=== PATIENT | female | born 1935 | race American Indian/Alaskan Native ===

== ENCOUNTER 2017-03-01 17:23 | Emergency (ER) | payer MEDICARE, MEDICAID ==
[2017-03-01 17:32] VITALS: BP 152/76; PULSE 78; RESP 18; TEMP 97.8; O2SAT 99
--- NOTE | 2017-03-01 17:55 | ED PDOC ---
HPI: General Adult Time Seen by Provider: 03/01/17 17:40 Chief Complaint (Nursing): Anxiety Chief Complaint (Provider): Anxious History Per: Family History/Exam Limitations: no limitations Onset/Duration Of Symptoms: Days, Persistent Have you had recent travel within the past 21 days to any of the following countries: [place], [place], [place] or [place]?: No Current Symptoms Are (Timing): Still Present Additional History Per: Family Additional Complaint(s): The pt is a 81yo female, PMHx of HTN, brought to the ED for evaluation of persistent anxiety. Per pt's daughter, the pt was scheduled for an MRI for chronic back pain and was not able to conduct it due to anxiety from being inside the machine. Daughter additionally reports the pt is unable to stay in a closed room and has an anxious affect persistently. Denies any chest pain, shortness of breath, fever, chills. Pt denies any other medical complaints. Past Medical History Reviewed: Historical Data, Nursing Documentation, Vital Signs Vital Signs: Last Vital Signs Temp 97.8 F 03/01/17 17:27 Pulse 78 03/01/17 17:27 Resp 18 03/01/17 17:27 BP 152/76 H 03/01/17 17:27 Pulse Ox 99 03/01/17 20:59 - Medical History PMH: HTN - Surgical History Surgical History: No Surg Hx - Family History Family History: States: Unknown Family Hx - Living Arrangements Living Arrangements: With Family - Allergies Allergies/Adverse Reactions: Allergies Allergy/AdvReac Type Severity Reaction Status Date / Time No Known Allergies Allergy Verified 03/01/17 17:26 Review of Systems ROS Statement: Except As Marked, All Systems Reviewed And Found Negative Constitutional: Negative for: Fever, Chills Cardiovascular: Negative for: Chest Pain Respiratory: Negative for: Shortness of Breath Psych: Positive for: Anxiety Physical Exam - Reviewed Nursing Documentation Reviewed: Yes Vital Signs Reviewed: Yes - Physical Exam Appears: Positive for: Well, Non-toxic, No Acute Distress Head Exam: Positive for: ATRAUMATIC, NORMAL INSPECTION, NORMOCEPHALIC Skin: Positive for: Normal Color, Warm, DRY Eye Exam: Positive for: Normal appearance Neck: Positive for: Normal Cardiovascular/Chest: Positive for: Regular Rate, Rhythm Respiratory: Positive for: Normal Breath Sounds. Negative for: Respiratory Distress Neurologic/Psych: Positive for: Alert, Oriented, Mood/Affect (anxious) - Laboratory Results Result Diagrams: 03/01/17 21:07 03/01/17 21:06 - ECG O2 Sat by Pulse Oximetry: 99 (RA) Pulse Ox Interpretation: Normal - Progress ED Course And Treament: xanax 0.25 mg x 1 dose with improvement of symptoms. d/w Crisis. Seen by them. cleared for d/c by Dr. Espitia. diagnosis Anxiety. Appointment made for outpatient March 10 for mental health services. Family to f/u with cardiology as well. Medical Decision Making Medical Decision Making: Time: 1747 Impression: Anxiety Plan: -- CT head -- Bloodwork -- CXR -- Urinalysis -- Crisis evaluation -- Reassess Time: 1934 CT HEAD FINDINGS: Brain: There is mild prominence of sulci, gyri and ventricles. There is no midline shift. There is decreased attenuation in periventricular white matter. There are age indeterminate bilateral basal ganglia lacunar infarcts. There basal ganglia calcifications left greater than right. There are no focal masses. There are no focal hemorrhages. Tirado-white differentiation is visualized. Ventricles: See above Bones: Cranial vault is intact. Soft tissues: unremarkable Sinuses: There is no acute sinusitis. Ears and mastoids: Middle ears and mastoids are unremarkable. Orbits: Orbital contents are unremarkable. IMPRESSION: Mild atrophy and small vessel disease no bleed; age indeterminate basal ganglia lacunar infarcts Time: 2052 CXR FINDINGS: Heart and mediastinum: The heart is mildly enlarged. There are calcifications in the aortic wall. Aorta is mildly uncoiled. Hilar contours are unremarkable. Vascularity:Pulmonary vascularity is normal. Lungs: Lungs are clear. Pleural spaces: There no effusions. Bony structures: Bony structures are osteopenic. IMPRESSION: Mild cardiomegaly and atherosclerotic disease no focal pneumonia Scribe Attestation: Documented by Sophie Gan acting as a scribe for DARRON Morales Provider Attestation: All medical record entries made by the Scribe were at my direction and personally dictated by me. I have reviewed the chart and agree that the record accurately reflects my personal performance of the history, physical exam, medical decision making, and the department course for this patient. I have also personally directed, reviewed, and agree with the discharge instructions and disposition. Disposition - Clinical Impression Clinical Impression: Anxiety - Patient ED Disposition Is Patient to be Admitted: No - Disposition Disposition: Routine/Home Disposition Time: 22:05 Condition: FAIR Instructions: Generalized Anxiety Disorder (ED)
[2017-03-01 19:11] LABS: SQUAMOUS EPITHIAL < 1 /hpf (0-5); URINE BILIRUBIN NEGATIVE (NEGATIVE); URINE BLOOD NEGATIVE (NEGATIVE); URINE CLARITY CLEAR (Clear); URINE COLOR STRAW (YELLOW); URINE GLUCOSE (UA) NEG (Normal); URINE LEUKOCYTE ESTERASE NEG Leu/uL (Negative); URINE NITRATE NEGATIVE (NEGATIVE); URINE PROTEIN NEGATIVE (NEGATIVE); URINE UROBILINOGEN 0.2-1.0 mg/dL (0.2-1.0)
[2017-03-01 19:22] LABS: BARBITURATES, UR NEGATIVE (NEGATIVE); BENZODIAZEPINES, UR NEGATIVE (NEGATIVE); OPIATES, UR NEGATIVE (NEGATIVE); PHENCYCLIDINE, UR NEGATIVE (NEGATIVE)
--- NOTE | 2017-03-01 19:33 | CT ---
EXAM: CT Head Without Intravenous Contrast CLINICAL HISTORY: 81 years old, female; Signs and symptoms; Altered mental status/memory loss; Other: Anxiety; Patient HX: Pat arrived to ed for evaluation of persisten anxiety, pat denies other medical complaints; Additional info: Change in mental status TECHNIQUE: Axial computed tomography images of the head/brain without intravenous contrast. This CT exam was performed using one or more of the following dose reduction techniques: automated exposure control, adjustment of the mA and/or kV according to patient size, and/or use of iterative reconstruction technique. Coronal and sagittal reformatted images were created and reviewed. EXAM DATE/TIME: 03/01/2017 5:52 PM COMPARISON: There are no prior studies for comparison. FINDINGS: Brain: There is mild prominence of sulci, gyri and ventricles. There is no midline shift. There is decreased attenuation in periventricular white matter. There are age indeterminate bilateral basal ganglia lacunar infarcts. There basal ganglia calcifications left greater than right. There are no focal masses. There are no focal hemorrhages. Tirado-white differentiation is visualized. Ventricles: See above Bones: Cranial vault is intact. Soft tissues: unremarkable Sinuses: There is no acute sinusitis. Ears and mastoids: Middle ears and mastoids are unremarkable. Orbits: Orbital contents are unremarkable. IMPRESSION: Mild atrophy and small vessel disease no bleed; age indeterminate basal ganglia lacunar infarcts
--- NOTE | 2017-03-01 20:53 | RAD ---
EXAM: XR Chest, 2 Views CLINICAL HISTORY: 81 years old, female; Signs and symptoms; Shortness of breath; Additional info: SOB TECHNIQUE: Frontal and lateral views of the chest. EXAM DATE/TIME: 03/01/2017 5:53 PM COMPARISON: There are no prior studies for comparison. FINDINGS: Heart and mediastinum: The heart is mildly enlarged. There are calcifications in the aortic wall. Aorta is mildly uncoiled. Hilar contours are unremarkable. Vascularity:Pulmonary vascularity is normal. Lungs: Lungs are clear. Pleural spaces: There no effusions. Bony structures: Bony structures are osteopenic. IMPRESSION: Mild cardiomegaly and atherosclerotic disease no focal pneumonia
[2017-03-01 21:10] LABS: BASO # 0.1 K/uL (0.0-0.2); BASO % 0.9 % (0.0-2.0); EOS # 0.1 K/uL (0.0-0.7); EOS % 2.1 % (0.0-4.0); HEMOGLOBIN 13.5 g/dL (12.0-16.0); LYMPH # 2.5 K/uL (1.0-4.3); MEAN CELL VOLUME 85.1 fl (81.0-99.0); MEAN CORPUSCULAR HEMOGLOBIN 28.2 pg (27.0-31.0); MEAN CORPUSCULAR HGB CONC 33.1 g/dL (33.0-37.0); MEAN PLATELET VOLUME 9.5 fl (7.2-11.7); MONO # 0.9 K/uL (0.0-0.8); MONO % 14.1 % (0.0-10.0); NEUT # 2.8 K/uL (1.8-7.0); NEUT % 43.9 % (50.0-75.0); NRBC % 0.2 % (0.0-0.0); RBC 4.78 Mil/uL (3.80-5.20); RED CELL DISTRIBUTION WIDTH 15.2 % (11.5-14.5); WHITE BLOOD COUNT 6.4 K/uL (4.8-10.8)
[2017-03-01 21:23] LABS: ALBUMIN 4.6 g/dL (3.5-5.0); ALT/SGPT 27 U/L (9-52); AST/SGOT 38 U/L (14-36); BLOOD UREA NITROGEN 14 mg/dl (7-17); CALCIUM 9.7 mg/dL (8.4-10.2); GFR AFRICAN-AMERICAN > 60; GFR NON-AFRICAN AMERICAN > 60
[2017-03-01 21:30] LABS: B-TYPE NATRIURETIC PEPTIDE 42.2 pg/ml (0-900)
--- NOTE | 2017-03-02 11:31 | CARD ---
APPROVED REPORT EKG Measurement Heart [id number] <Conclusion> Normal sinus rhythm Normal ECG
== END 2017-03-01 22:18 | disposition home or self-care (01) ==
LOC: H.ER 17:23
DX: F41.9 Anxiety disorder, unspecified (principal); I10 Essential (primary) hypertension
CPT/HCPCS: 70450; 71020; 80053; 81003; 83880; 84443; 85025; 87086; 93005; 99281; G0480